=== PATIENT | female | born 1975 | race Caucasian/White ===

== ENCOUNTER 2019-11-20 19:09 | Emergency (ER) | payer OTHER ==
[~2019-11-20] VITALS: Ht 170.2 cm; Wt 90.7 kg
[2019-11-20 19:27] VITALS: Ht 170.2 cm; Wt 90.7 kg
[2019-11-20] MEDS ORDERED: LOPRESSOR25 MG PO (19:28)
[2019-11-20] MEDS ORDERED: NORVASC5 MG (19:28)
[2019-11-20] MEDS ORDERED: STERAPRED DS 1010 MG PO (20:44)
[2019-11-20 21:30] VITALS: BP 175/93
== END 2019-11-20 21:30 | disposition home or self-care (01) ==
LOC: D.ER 19:09
DX: M77.9 Enthesopathy, unspecified (principal); M79.672 Pain in left foot; I10 Essential (primary) hypertension